=== PATIENT | male | born 1950 | race Caucasian/White ===

== ENCOUNTER → 2017-02-08 | Outpatient (CLI) | payer MEDICARE ==
[~2017-02-08] MED LIST: ALBUAER3 IN; ATOR20TA PO; LEVO500T21 PO; LISI-646 PO; SACC250C PO
[2017-02-08 11:56] LABS: Albumin 3.8 g/dL (3.4-5.0); BUN/Creatinine Ratio 16.8; Bilirubin, Total 0.8 mg/dL (0.2-1.0); Calcium 9.5 mg/dL (8.5-10.1); Potassium 4.6 mmol/L (3.5-5.1); Total Protein 7.7 g/dL (6.4-8.2)
== END | disposition home or self-care (01) ==
LOC: LAB 10:26
DX: Z00.00 Encounter for general adult medical examination without abnormal findings (principal)
CPT/HCPCS: 36415; 80053; 83036

== ENCOUNTER 2025-01-26 12:04 | Inpatient (IN) | payer MEDICARE ==
[~2025-01-26] VITALS: Ht 180.3 cm; Wt 127.4 kg
[~2025-01-26 12:04] MED LIST changes: -LEVO500T21 PO; +LEVO500T31 PO; -LISI-646 PO; +LISI20TA56 PO
--- NOTE | 2025-01-26 12:44 | ECG ---
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
--- NOTE | 2025-01-26 13:15 | ED.PDOC ---
HPI Comments 74 year old male with a Hx of HTN, and CA presents to the ED for the c/c of Left Sided Chest pain and a Shingles Rash that has spread up his left arm. Pt states that he was at Urgent Care and was given a Rocephin Shot and a Script for Cephalexin in order to treat his rash. Pt states that the main reason he did come to the ED was for his CP. No other associated symptoms, modifiers, recent injuries or sick contacts present at this time. Chief Complaint: Chest Pain Time Seen by MD: 13:10 Primary Care Provider: NONE Reviewed Notes: Nurses Notes, Medications, Allergies Allergies: Coded Allergies: Penicillins (Verified Allergy, Unknown, 01/29/17) Pentobarbital (Verified Allergy, Unknown, 01/29/17) Home Meds Active Scripts Lisinopril (Lisinopril) 20 Mg Tab, 1 TAB PO DAILY, #30 TAB Prov:ANIYA KENT MD 02/01/17 Atorvastatin Calcium (Lipitor) 20 Mg Tab, 1 TAB PO DAILY, #30 TAB Prov:ANIYA KENT MD 02/01/17 Yeast (S. Boulardii)(S. Cerevi (Florastor) 250 Mg Cap, 250 MG PO DAILY, #14 CAP Prov:ANIYA KENT MD 02/01/17 Levofloxacin (Levaquin) 500 Mg Tab, 500 MG PO DAILY, #14 TAB Prov:ANIYA KENT MD 02/01/17 Reported Medications Albuterol Sulfate (VENTOLIN MDI) 90 Mcg Ih, 90 MCG IN 01/29/17 Information Source: Patient Mode of Arrival: Ambulatory Severity: Moderate Timing: Days Duration: Since onset, Days Prehospital treatment: None Location: Chest (L) Radiation: No Radiation Quality: Pressure Onset: At Rest Cardiac Risk Factors: HTN PE Risk Factors: None History of: CA Associated Signs and Symptoms: None Past Medical History PAST MEDICAL HISTORY: Asthma, HTN, CA, Denies Surgical History: Denies all surgeries Family History Family History: Unknown Social History Smoker: Non-Smoker Alcohol: Denies ETOH Use Drugs: Denies Drug Use Lives In: Home Constitutional: denies: chills, diaphoresis, fatigue, fever, malaise, sweats, weakness, others EENTM: denies: blurred vision, double vision, ear bleeding, ear discharge, ear drainage, ear pain, ear ringing, eye pain, eye redness, hearing loss, mouth pain, mouth swelling, nasal discharge, nose bleeding, nose congestion, nose pain, photophobia, tearing, throat pain, throat swelling, voice changes, others Respiratory: denies: cough, hemoptysis, orthopnea, SOB at rest, shortness of breath, SOB with excertion, stridor, wheezing, others Cardiovascular: reports: chest pain; denies: dizzy spells, diaphoresis, Dyspnea on exertion, edema, irregular heart beat, left arm pain, lightheadedness, palpitations, PND, syncope, others Gastrointestinal: denies: abdomen distended, abdominal pain, blood streaked bowels, constipated, diarrhea, dysphagia, difficulty swallowing, hematemesis, melena, nausea, poor appetite, poor fluid intake, rectal bleeding, rectal pain, vomiting, others Genitourinary: denies: burning, dysuria, flank pain, frequency, hematuria, incontinence, penile discharge, penile sore, pain, testicle pain, testicle swelling, urgency, others Neurological: denies: dizziness, fainting, headache, left sided numbness, left sided weakness, numbness, paresthesia, pre-existing deficit, right sided numbness, right sided weakness, seizure, speech problems, tingling, tremors, w eakness, others Musculoskeletal: denies: back pain, gout, joint pain, joint swelling, muscle pain, muscle stiffness, neck pain, others Integumetry: reports: rash; denies: bruises, change in color, change in hair/nails, dryness, laceration, lesions, lumps, wounds, others Allergic/Immunocompromised: denies: Difficulty Healing, Frequent Infections, Hives, Itching, others Hematologic/Lymphatic: denies: anemia, blood clots, easy bleeding, easy bruising, swollen glands, others Endocrine: denies: excessive hunger, excessive sweating, excessive thirst, excessive urination, flushing, intolerance to cold, intolerance to heat, unexplained weight gain, unexplained weight loss, others Psychiatric: denies: anxiety, bipolar disorder, depression, hopeless, panic disorder, schizophrenia, sleepless, suicidal, others All Other Systems: Reviewed and Negative Physical Exam General Appearance: Moderate Distress, Normal HEENT: Normal ENT Inspection, Pharynx Normal, TMs Normal Neck: Full Range of Motion, Non-Tender, Normal, Normal Inspection Respiratory: Chest Non-Tender, Lungs Clear, No Accessory Muscle Use, No Respiratory Distress, Normal Breath Sounds Cardiovascular: No Edema, No JVD, No Murmur, No Gallop, Normal Peripheral Pulses, Regular Rate/Rhythm Breast Exam: Deferred Gastrointestinal: No Organomegaly, Non Tender, No Pulsatile Mass, Normal Bowel Sounds, Soft Genitalia: Deferred Pelvic: Deferred Rectal: Deferred Extremities: No calf tenderness, Normal capillary refill, Normal inspection, Normal range of motion, Non-tender, No pedal edema Musculoskeletal : Apperance: Normal Neurologic: Alert, manager policy II-XII nml as Tested, No Motor Deficits, Normal Affect, Normal Mood, No Sensory Deficits Cerebellar Function: Normal Reflexes: Normal Skin: Dry, Normal Color, Warm, Wounds (Left forearm) Peripheral Pulses: 3+ Radial (R), 3+ Radial (L) Lymphatic: No Adenopathy Was a procedure done? Was a procedure done?: No CP Differential Dx Differential Diagnosis: A-fib, A-Flutter, Angina, Anxiety / Panic Attack, Atrial Dysrhythmia, Electrolyte Disorder, Heart Failure, Pulmonary Embolus, Sinus Tachycardia Differential Diagnosis: CHF, HTN Essential, HTN Encephalopathy Differential Diagnosis: Angina, Aortic dissection, Chest Wall Pain, Cholelithia sis, Costochondritis, Esophageal reflux/spasm, Gastritis, Pericarditis, Pneumothorax, Pulmonary Embolus X-Ray, Labs, Meds, VS Vital Signs Date Time Temp Pulse Resp B/P (MAP) Pulse Ox O2 Delivery O2 Flow Rate FiO2 01/26/25 15:07 97.7 77 18 147/82 (103) 96 97.7 01/26/25 13:37 80 01/26/25 12:42 80 01/26/25 12:25 97.5 87 20 143/73 (96) 96 97.5 Lab Test 01/26/25 14:14 01/26/25 13:14 Range/Units Urine Color Light-yellow Yellow Urine Clarity Clear Clear Urine pH 6.0 5.0-9.0 Urine Specific [place] 1.020 1.001-1.035 Urine Protein Negative Negative Urine Ketones Negative Negative Urine Blood Negative Negative /uL Urine Nitrite Negative Negative Urine Bilirubin Negative Negative Urine Urobilinogen Normal Negative mg/dL Urine Leukocyte Esterase Negative Negative /uL Urine RBC None seen 0 - 3 /hpf Urine Microscopic WBC < 1 0-3 /HPF Urine Squamous Epithelial Cells Few <5 /hpf Urine Bacteria None seen None Seen /hpf Urine Mucus Few None Seen Urine Glucose Normal Normal mg/dL White Blood Count 4.8 4.4-10.8 10^3/uL Red Blood Count 4.85 4.5-5.90 10^6/uL Hemoglobin 15.6 13.5-17.5 g/dL Hematocrit 46.4 41.0-53.0 % Mean Corpuscular Volume 95.6 80.0-100.0 fL Mean Corpuscular Hemoglobin 32.1 H 28.0-32.0 pg Mean Corpuscular Hemoglobin Concent 33.5 32.0-36.0 g/dL Red Cell Distribution Width 14.0 11.8-14.3 % Platelet Count 218 140-450 10^3/uL Mean Platelet Volume 8.5 6.9-10.8 fL Neutrophils (%) (Auto) 50.7 37.0-80.0 % Lymphocytes (%) (Auto) 33.7 10.0-50.0 % Monocytes (%) (Auto) 12.3 H 0.0-12.0 % Eosinophils (%) (Auto) 2.4 0.0-7.0 % Basophils (%) (Auto) 0.9 0.0-2.0 % Neutrophils # (Auto) 2.4 1.6-8.6 10 ^3/uL Lymphocytes # (Auto) 1.6 0.4-5.4 10 ^3/uL Monocytes # (Auto) 0.6 0-1.3 10 ^3/uL Eosinophils # (Auto) 0.1 0-0.8 10 ^3/uL Basophils # (Auto) 0 0-0.2 10 ^3/uL Nucleated Red Blood Cells 0.1 % Sodium Level 136 136-145 mmol/L Potassium Level 4.6 3.5-5.1 mmol/L Chloride Level 104 98-107 mmol/L Carbon Dioxide Level 25 20-31 mmol/L Anion Gap 7 5-15 Blood Urea Nitrogen 23 9-23 mg/dL Creatinine 1.17 0.700-1.30 mg/dL Glomerular Filtration Rate Calc 65 >90 mL/min BUN/Creatinine Ratio 19.7 10.0-20.0 Serum Glucose 96 74-106 mg/dL Calcium Level 9.6 8.7-10.4 mg/dL Troponin I High Sensitivity 9 </=54 ng/L Patient alert. Has wound in the left forearm. Cellulitis. Vitals stable. Complaining of chest discomfort. Cardiac marker within normal limits. EKG reviewed does not show any acute changes. WBC within normal limits. Hemoglobin within normal limits. Was given Rocephin. Was given clindamycin. Explained to the patient. Continue monitoring. Time of 1ST Reevaluation: 13:41 Reevaluation 1ST: Unchanged Patient Education/Counseling: Diagnosis, Treatment, Need For Follow Up Family Education/Counseling: No Family Present SEPSIS Sepsis Screen Physician Orders Electrocardigram (01/26/25 13:33) Electrocardigram (01/26/25 15:33) Vital Signs Date Time Temp Pulse Resp B/P (MAP) Pulse Ox O2 Delivery O2 Flow Rate FiO2 01/26/25 15:07 97.7 77 18 147/82 (103) 96 97.7 01/26/25 13:37 80 01/26/25 12:42 80 01/26/25 12:25 97.5 87 20 143/73 (96) 96 97.5 Laboratory Tests Test 01/26/25 13:14 White Blood Count 4.8 10^3/uL (4.4-10.8) Departure 1 Departure Time of Disposition: 15:57 Impression: Primary Impression: Chest pain of unknown etiology Additional Impression: Cellulitis of forearm, left Disposition: 09 ADMITTED INPATIENT Admit to: Med Surg Condition: Guarded Critical Care Note Critical Care Time?: No Stability Stability form required: No Heart Score Heart Score: Heart Score Response (Comments) Value History Slightly Suspicious 0 EKG Normal 0 Age >65 2 Risk Factors 1 or 2 risk factors 1 Troponin Normal limit 0 Total 3 I personally scribed for JOSIE CARRASQUILLO MD ([email or web address]) on 01/26/25 at 13:15. Electronically submitted by Tommy Dong ([email or web address]). JOSIE CARRASQUILLO MD Jan 26, 2025 13:15
[2025-01-26 13:52] LABS: Hematocrit 46.4 % (41.0-53.0); Hemoglobin 15.6 g/dL (13.5-17.5); Mean Corpuscular Hemoglobin 32.1 pg (28.0-32.0); Mean Corpuscular Volume 95.6 fL (80.0-100.0); Nucleated Red Blood Cells % 0.1 %
[2025-01-26 13:53] LABS: Chloride 104 mmol/L (98-107); Potassium 4.6 mmol/L (3.5-5.1); Sodium 136 mmol/L (136-145)
[2025-01-26 13:54] LABS: Anion Gap 7 (5-15); Carbon Dioxide 25 mmol/L (20-31)
[2025-01-26 13:55] LABS: Calcium 9.6 mg/dL (8.7-10.4)
[2025-01-26 13:59] LABS: Glucose 96 mg/dL (74-106)
[2025-01-26 14:00] LABS: BUN/Creatinine Ratio 19.7 (10.0-20.0); Blood Urea Nitrogen 23 mg/dL (9-23)
[2025-01-26 14:47] LABS: Urine Protein, UAD Negative (Negative)
[2025-01-26 16:35] VITALS: PULSE 70; RESP 16; O2SAT 97
[2025-01-26] MEDS: CLINDAMYCIN 300MG IV 50 ML IV ONE (16:38)
[2025-01-26] MEDS ORDERED: NITROGLYCERIN 0.4 MG SL TAB SL PRN (22:30)
[2025-01-26] MEDS ORDERED: MORPHINE SULFATE INJ 2 MG/ml SYRG IV PRN (22:30)
[2025-01-26] MEDS: IBUPROFEN 400 MG TAB PO ONE (22:46)
--- NOTE | 2025-01-26 22:46 | DVHHP2 ---
History of Present Illness History of Present Illness This is a 74-year-old male with past medical history of Asthma on albuterol inhaler as needed, Hypertension, prediabetic came to ER with the complain of rash outer surface of left forearm and crusted lesion medial surface. Patient visited urgent care 9 days ago due to vesicular lesion left forearm and prescribed valacyclovir, cephalexin, mupirocin ointment. Patient also experienced chest pain for 9 days, 2-3/10 intensity, localized, no radiation, worsened at nighttime, no relieving factor. Patient reported new onset of rash left forearm which is worsen for few days raised local temperature, mild swollen but no discharge. No recent history of trauma, insect bite or sick contact. Patient currently denies any shortness of breath, cough, headache, blurry vision, abdominal pain for any acute distress. Patient use walker for ambulation. Past medical history: Asthma, hypertension, prediabetes Physical history: Nothing contributory Personal and social history: Lives with , denies any smoking, ETOH, any substance use Allergy: PCN, phenobarbital. Medicine: Lisinopril 20 mg, Atorvastatin 20 mg, albuterol inhalers. Review of Systems Constitutional: Yes: Other (Obese, use walker for ambulation) Eyes: No: Pain, Vision change, Conjunctivae inflammation, Eyelid inflammation, Other, Redness ENT: No: Ear pain, Ear discharge, Nose pain, Nose discharge, Nose congestion, Mouth pain, Mouth swelling, Throat pain, Throat swelling, Other Respiratory: No: Cough, Dry, Shortness of breath, SOB with excertion, Wheezing, Hemoptysis, Pleuritic Pain, Sputum, Wheezing, Other Cardiovascular: Chest Pain, Edema; No: Palpitations, Orthopnea, Paroxysmal Noc. Dyspnea, Lt Headedness, Other Genitourinary: No Dysuria, No Frequency, No Incontinence, No Hematuria, No R etention, No Other Musculoskeletal: No: other, neck pain, shoulder pain, arm pain, back pain, hand pain, leg pain, foot pain Skin: Rash, Lesions (Crusted lesion flexor surface of left forearm) Neurological: No: Weakness, Numbness, Incoordination, Change in speech, Confusion, Seizures, Other Allergies: Coded Allergies: Penicillins (Verified Allergy, Unknown, 01/29/17) Pentobarbital (Verified Allergy, Unknown, 01/29/17) Medications Current Medications Medications Dose Ordered Sig/Jhon Route Start Time Stop Time Status Last Admin Dose Admin Nitroglycerin 0.4 mg Q5MINP PRN SL 01/26/25 22:30 Morphine Sulfate 2 mg Q30M PRN IV 01/26/25 22:30 Clindamycin Phosphate 50 ml @ 50 mls/hr Q8HR@0000,0800,1600 IV 01/27/25 00:00 Pantoprazole Sodium 40 mg DAILY@0600 PO 01/27/25 06:00 Enoxaparin Sodium 30 mg HS SC 01/27/25 22:00 Lisinopril 20 mg DAILY PO 01/27/25 10:00 Saccharomyces Boulardii 250 mg DAILY PO 01/27/25 10:00 Exam Vital Signs Vital Signs Date Time Temp Pulse Resp B/P (MAP) Pulse Ox O2 Delivery O2 Flow Rate FiO2 01/26/25 21:23 98.5 62 17 157/85 (109) 95 98.5 01/26/25 16:35 Room Air* 0 21 General Appearance: Alert, Oriented X3, No acute distress, Other (rash extensor surface of left forearm and crusted lesion flexor surface) HEENT: PERRLA, EOMI, Other (use glasses for vision) Respiratory: Clear to auscultation Cardiovascular: Regular rate, Normal S1, Normal S2 Abdominal: Normal bowel sounds, Soft, Other (Umbilical hernia) Extremities: No clubbing, No cyanosis, Other (Bilateral 1+ edema) Labs/Xrays Labs Test 01/26/25 14:14 01/26/25 13:14 Range/Units Urine Color Light-yellow Yellow Urine Clarity Clear Clear Urine pH 6.0 5.0-9.0 Urine Specific [place] 1.020 1.001-1.035 Urine Protein Negative Negative Urine Ketones Negative Negative Urine Blood Negative Negative /uL Urine Nitrite Negative Negative Urine Bilirubin Negative Negative Urine Urobilinogen Normal Negative mg/dL Urine Leukocyte Esterase Negative Negative /uL Urine RBC None seen 0 - 3 /hpf Urine Microscopic WBC < 1 0-3 /HPF Urine Squamous Epithelial Cells Few <5 /hpf Urine Bacteria None seen None Seen /hpf Urine Mucus Few None Seen Urine Glucose Normal Normal mg/dL White Blood Count 4.8 4.4-10.8 10^3/uL Red Blood Count 4.85 4.5-5.90 10^6/uL Hemoglobin 15.6 13.5-17.5 g/dL Hematocrit 46.4 41.0-53.0 % Mean Corpuscular Volume 95.6 80.0-100.0 fL Mean Corpuscular Hemoglobin 32.1 H 28.0-32.0 pg Mean Corpuscular Hemoglobin Concent 33.5 32.0-36.0 g/dL Red Cell Distribution Width 14.0 11.8-14.3 % Platelet Count 218 140-450 10^3/uL Mean Platelet Volume 8.5 6.9-10.8 fL Neutrophils (%) (Auto) 50.7 37.0-80.0 % Lymphocytes (%) (Auto) 33.7 10.0-50.0 % Monocytes (%) (Auto) 12.3 H 0.0-12.0 % Eosinophils (%) (Auto) 2.4 0.0-7.0 % Basophils (%) (Auto) 0.9 0.0-2.0 % Neutrophils # (Auto) 2.4 1.6-8.6 10 ^3/uL Lymphocytes # (Auto) 1.6 0.4-5.4 10 ^3/uL Monocytes # (Auto) 0.6 0-1.3 10 ^3/uL Eosinophils # (Auto) 0.1 0-0.8 10 ^3/uL Basophils # (Auto) 0 0-0.2 10 ^3/uL Nucleated Red Blood Cells 0.1 % Sodium Level 136 136-145 mmol/L Potassium Level 4.6 3.5-5.1 mmol/L Chloride Level 104 98-107 mmol/L Carbon Dioxide Level 25 20-31 mmol/L Anion Gap 7 5-15 Blood Urea Nitrogen 23 9-23 mg/dL Creatinine 1.17 0.700-1.30 mg/dL Glomerular Filtration Rate Calc 65 >90 mL/min BUN/Creatinine Ratio 19.7 10.0-20.0 Serum Glucose 96 74-106 mg/dL Calcium Level 9.6 8.7-10.4 mg/dL Troponin I High Sensitivity 9 </=54 ng/L Assessment/Plan Assessment/Plan # Left forearm erythematous rash likely sub acute herpes rash/ left forearm cellulitis -patient having rash last few days which became worsen. - left extensor surface forearm raised localized temperature, redness, mild local edema. -Pt received IV clindamycin, levofloxacin , NS in ED. -Continue clindamycin IV Q8h daily -Daily monitor for spread of infection -Monitor CBC # Atypical Chest pain likely due to musculoskeletal, GERD - Received [id number] mg P.O. in ED -Troponin level 9 -Ibuprofen 600 mg p.o. given. -Continue pantoprazole 40 mg daily # Crusted lesion left forearm due to healing herpes zoster -H/O zoster Lesion left forearm and treated with p.o. valacyclovir # Essential hypertension -LISINOPRIL 20 MG DAILY -MONITOR BP # Prediabetic -will check HGB A1c # Morbid Obesity -BMI 39.6 -LIFESTYLE MODIFICATION #Diet: Regular # GI prophylaxis: Pantoprazole 40 mg # DVT prophylaxis : Enoxaparin 30 mg sc daily Goals of care discussion, greater than 29 minutes. Full code status. Discussed with Dr. Bobo. Plan discussed with: Patient, Other (Nurse) My Orders Orders - GARRET DOYLE Procedure Category Date Status Time Admit ADMIT 01/26/25 Transmitted 22:24 Nitroglycerin PHA 01/26/25 In Process Sublingual (Ntrostat 22:30 Morphine Sulfate PHA 01/26/25 In Process Injection 22:30 Date of Service: Jan 26, 2025 Billing Provider: EVITA BOBO MD Common Visit Codes: 29324-OXLEOBH INP/OBS CARE (HIGH) Secondary Visit Codes: 63067-[id number] CARE PLAN 30 MINUTES GARRET DOYLE Jan 26, 2025 22:46
[2025-01-26] MEDS: LISINOPRIL 20 MG TAB PO ONE (22:47)
[2025-01-26] MEDS: ENOXAPARIN SOD 30 MG/0.3 ML SYRINGE SC ONE (22:47)
[2025-01-27] MEDS: CLINDAMYCIN 600MG IV 50 ML IV SCH
[2025-01-27 01:10] VITALS: BP 148/79; PULSE 91; RESP 17; TEMP 79.9; TEMP 97.9; O2SAT 95
--- NOTE | 2025-01-27 02:14 | DVH ---
EXAM: XY CHEST XRAY 1 VIEW CLINICAL HISTORY: Chest pain TECHNIQUE: Single AP view of the chest WID: COMPARISON: None FINDINGS: Lines and tubes: None Chest: Mild cardiomegaly. No pulmonary vascular congestion. Linear bibasilar and perihilar opacities. The osseous structures are grossly intact. Multilevel thoracic spondylosis. IMPRESSION: Mild cardiomegaly.
[2025-01-27 04:54] VITALS: BP 134/83; PULSE 65; RESP 16; TEMP 97.8; O2SAT 96
[2025-01-27] MEDS: PANTOPRAZOLE 40 MG TAB PO SCH (06:00)
--- NOTE | 2025-01-27 06:41 | ECG ---
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
[2025-01-27 09:00] VITALS: BP 139/88; PULSE 74; RESP 20; TEMP 97.7; O2SAT 96
[2025-01-27] MEDS: FLORASTOR (S. BOULARDII) 250 MG CAP PO SCH (10:44)
[2025-01-27] MEDS: LISINOPRIL 20 MG TAB PO SCH (10:44)
[2025-01-27 13:00] VITALS: BP 114/62; PULSE 83; RESP 20; TEMP 97.3; O2SAT 97
--- NOTE | 2025-01-27 13:52 | DVHPNRES ---
Progress Note Date Seen: Jan 27, 2025 Resident Creating Document: CRYS GALLOWAY RESIDENT Medical Necessity Reason Pt with a Central, PICC or Fol: No Subjective Review of Systems This is a 74-year-old male with past medical history of Asthma on albuterol inhaler as needed, Hypertension, prediabetic came to ER with the complain of rash outer surface of left forearm and crusted lesion medial surface. Patient visited urgent care 9 days ago due to vesicular lesion left forearm and prescribed valacyclovir, cephalexin, mupirocin ointment. Patient also experienced pain in the lt axilla for 5 days, 2-3/10 intensity, localized, no radiation, worsened at nighttime, no relieving factor. Patient reported new onset of rash left forearm which is worsen for few days raised local temperature, mild swollen but no discharge. No recent history of trauma, insect bite or sick contact. Patient currently denies any shortness of breath, cough, headache, blurry vision, abdominal pain for any acute distress. Patient use walker for ambulation. Patient was seen and examined on the bedside. He is alert oriented x3. Complain of pain and redness in the left extensor surface of the forearm and also crusted black painful scar on the flexor surface from the zoster. Constitutional: No: Fever, Chills, Sweats, Weakness, Malaise, Other Eyes: No: Pain, Vision change, Conjunctivae inflammation, Eyelid inflammation, Other, Redness ENT: No: Ear pain, Ear discharge, Nose pain, Nose discharge, Nose congestion, Mouth pain, Mouth swelling, Throat pain, Throat swelling, Other Respiratory: Shortness of breath, improving No: Cough, Dry,Wheezing, Hemoptysis, Pleuritic Pain, Sputum, Wheezing, Other Cardiovascular: No: Chest Pain, Palpitations, Orthopnea, Paroxysmal Noc. Dyspnea, Edema, Lt Headedness, Other Gastrointestinal: No: Nausea, Vomiting, Abdominal Pain, Diarrhea, Constipation, Melena, Hematochezia, Other Musculoskeletal: Lt forearm pain, No: other, neck pain, shoulder pain, arm pain, back pain, leg pain, foot pain Neurological:; No: Weakness, Numbness, Incoordination, Change in speech, Confusion, Seizures Objective vital signs Vital Sign Date Time Temp Pulse Resp B/P (MAP) Pulse Ox O2 Delivery O2 Flow Rate FiO2 01/27/25 10:44 139/88 01/27/25 09:00 97.7 74 20 96 97.7 01/27/25 01:10 Room Air* 0 21 Total Intake and Output 01/26/25 01/26/25 01/27/25 15:00 23:00 07:00 Intake Total 150 ml 50 ml Balance 150 ml 50 ml medications Current Medications Medications Dose Ordered Sig/Jhon Route Start Time Stop Time Status Last Admin Dose Admin Clindamycin Phosphate 50 ml @ 50 mls/hr Q8HR@0000,0800,1600 IV 01/27/25 00:00 01/27/25 08:20 50 MLS/HR Pantoprazole Sodium 40 mg DAILY@0600 PO 01/27/25 06:00 01/27/25 06:00 40 MG Enoxaparin Sodium 30 mg HS SC 01/27/25 22:00 Lisinopril 20 mg DAILY PO 01/27/25 10:00 01/27/25 10:44 20 MG Saccharomyces Boulardii 250 mg DAILY PO 01/27/25 10:00 01/27/25 10:44 250 MG Examination Physical examination: General Appearance: Alert, Oriented X3, Cooperative, No acute distress HEENT: Atraumatic, PERRLA, EOMI, Mucous membrane moist/pink Respiratory: Clear to auscultation, Normal air movement Cardiovascular: Regular rate, Normal S1, Normal S2, No murmurs, no chest wall tenderness Abdominal: Normal bowel sounds, Soft, No tenderness, No hepatospenomegaly, No masses Extremities: No clubbing, No cyanosis, No edema, Normal pulses, No tenderness/swelling Skin: Redness and crusted scar in the left forearm Neuro: Normal gait, Normal speech, Strength at 5/5 X4 ext, Normal tone, Sensation intact, Cranial nerves 3-12 NL, Reflexes 2+ Psych/Mental Status: Mental status NL, Mood NL laboratory and microbiology Laboratory Tests 01/26/25 13:14 Test 01/26/25 13:14 Range/Units Serum Glucose 96 74-106 mg/dL Labs and/or images reviewed: Labs reviewed by me, Image(s) reviewed by me Problem List/Assessment/Plan Problem List/Assessment/Plan Assessment/Plan # Left forearm erysipelas/ cellulitis -Continue clindamycin IV Q8h daily # Chest pain likely due to musculoskeletal /gastritis - EKG showed sinus rhythm, old Q-wave, troponins are remarkable -Ibuprofen 600 mg p.o. given. -Continue pantoprazole 40 mg daily # Crusted lesion left forearm due to healing herpes zoster -H/O zoster Lesion left forearm and treated with p.o. valacyclovir # Essential hypertension - Lisinopril 20 mg daily # Prediabetic -will check HbA1c # Morbid Obesity, BMI 39.6 - counseled patient regarding DASH diet, lifestyle modification, weight loss and physical exercise at least 150 minutes 5 times a week #Diet: Regular # GI prophylaxis: Pantoprazole 40 mg # DVT prophylaxis : Enoxaparin 40 mg sc daily Goals of care discussion, greater than 21 minutes. Full code status. Plan discussed with Dr. Handley Plan discussed with: Patient, Other Date of Service: Jan 27, 2025 Billing Provider: LINK HANDLEY MD Common Visit Codes: [id number] INP/OBS CARE(HIGH) CRYS GALLOWAY RESIDENT Jan 27, 2025 13:52 LINK HANDLEY MD Jan 28, 2025 21:12
[2025-01-27 16:58] VITALS: BP 119/70; PULSE 76; RESP 20; TEMP 98.1; O2SAT 95
[2025-01-27 21:00] VITALS: BP 112/64; PULSE 73; RESP 19; TEMP 96.9; O2SAT 97
[2025-01-27] MEDS: ENOXAPARIN SOD 40 MG/0.4 ML SYRINGE SC SCH (21:52)
[2025-01-27] MEDS ORDERED: ENOXAPARIN SOD 30 MG/0.3 ML SYRINGE SC SCH (22:00)
[2025-01-28 01:00] VITALS: BP 119/74; PULSE 67; RESP 18; TEMP 97.5; O2SAT 96
[2025-01-28 05:00] VITALS: BP 134/79; PULSE 74; RESP 19; TEMP 97.1; O2SAT 94
[2025-01-28 09:00] VITALS: BP 124/74; PULSE 76; RESP 20; TEMP 97.8; O2SAT 96
[2025-01-28] MEDS ORDERED: PANT40TA2 PO ×2 (11:46→13:31)
[2025-01-28] MEDS ORDERED: AUG875T PO (11:46)
--- NOTE | 2025-01-28 11:50 | DVHDSRES ---
Discharge Summary Date of Admission Resident Creating Document: PERLITA LUGO RESIDENT Jan 26, 2025 at 22:24 Date of Discharge: Jan 28, 2025 Admitting Diagnosis Musculoskeletal chest pain Labs/Diagnostic Data: Laboratory Results Test 01/27/25 17:44 01/26/25 14:14 01/26/25 13:14 Hemoglobin A1c 5.7 % A1C (<5.7) Urine Color Light-yellow (Yellow) Urine Clarity Clear (Clear) Urine pH 6.0 (5.0-9.0) Urine Specific [place] 1.020 (1.001-1.035) Urine Protein Negative (Negative) Urine Ketones Negative (Negative) Urine Blood Negative /uL (Negative) Urine Nitrite Negative (Negative) Urine Bilirubin Negative (Negative) Urine Urobilinogen Normal mg/dL (Negative) Urine Leukocyte Esterase Negative /uL (Negative) Urine RBC None seen /hpf (0 - 3) Urine Microscopic WBC < 1 /HPF (0-3) Urine Squamous Epithelial Cells Few /hpf (<5) Urine Bacteria None seen /hpf (None Seen) Urine Mucus Few (None Seen) Urine Glucose Normal mg/dL (Normal) White Blood Count 4.8 10^3/uL (4.4-10.8) Red Blood Count 4.85 10^6/uL (4.5-5.90) Hemoglobin 15.6 g/dL (13.5-17.5) Hematocrit 46.4 % (41.0-53.0) Mean Corpuscular Volume 95.6 fL (80.0-100.0) Mean Corpuscular Hemoglobin 32.1 pg (28.0-32.0) Mean Corpuscular Hemoglobin Concent 33.5 g/dL (32.0-36.0) Red Cell Distribution Width 14.0 % (11.8-14.3) Platelet Count 218 10^3/uL (140-450) Mean Platelet Volume 8.5 fL (6.9-10.8) Neutrophils (%) (Auto) 50.7 % (37.0-80.0) Lymphocytes (%) (Auto) 33.7 % (10.0-50.0) Monocytes (%) (Auto) 12.3 % (0.0-12.0) Eosinophils (%) (Auto) 2.4 % (0.0-7.0) Basophils (%) (Auto) 0.9 % (0.0-2.0) Neutrophils # (Auto) 2.4 10 ^3/uL (1.6-8.6) Lymphocytes # (Auto) 1.6 10 ^3/uL (0.4-5.4) Monocytes # (Auto) 0.6 10 ^3/uL (0-1.3) Eosinophils # (Auto) 0.1 10 ^3/uL (0-0.8) Basophils # (Auto) 0 10 ^3/uL (0-0.2) Nucleated Red Blood Cells 0.1 % Sodium Level 136 mmol/L (136-145) Potassium Level 4.6 mmol/L (3.5-5.1) Chloride Level 104 mmol/L (98-107) Carbon Dioxide Level 25 mmol/L (20-31) Anion Gap 7 (5-15) Blood Urea Nitrogen 23 mg/dL (9-23) Creatinine 1.17 mg/dL (0.700-1.30) Glomerular Filtration Rate Calc 65 mL/min (>90) BUN/Creatinine Ratio 19.7 (10.0-20.0) Serum Glucose 96 mg/dL (74-106) Calcium Level 9.6 mg/dL (8.7-10.4) Troponin I High Sensitivity 9 ng/L (</=54) Other Laboratory Tests 01/26/25 13:14 Brief Hx & Hospital Course: 74-year-old male with past medical history of Asthma on albuterol inhaler as needed, Hypertension, prediabetic came to ER with the complain of rash outer surface of left forearm and crusted lesion medial surface. Patient visited urgent care 9 days ago due to vesicular lesion left forearm and prescribed valacyclovir, cephalexin, mupirocin ointment. Patient also experienced pain in the lt axilla for 5 days, 2-3/10 intensity, localized, no radiation, worsened at nighttime, no relieving factor. Patient reported new onset of rash left forearm which is worsen for few days raised local temperature, mild swollen but no discharge. No recent history of trauma, insect bite or sick contact. Patient currently denies any shortness of breath, cough, headache, blurry vision, abdominal pain for any acute distress. Patient use walker for ambulation. Patient had left forearm Rocephin was versus cellulitis we started IV clindamycin, two the patient is feeling better, erythema reduced, no complaint of pain or fever or chills, patient also diagnosed with herpes zoster on arm treated with p.o. acyclovir, some healing herpes zoster rash observed, no active herpes zoster noted. Two the patient is hemodynamically stable and going to be discharged home with p.o. clindamycin for seven more days. Advised patient to follow up with PCP in 1-2 weeks. Condition at Discharge: Stable Final Diagnosis/Problems List # Left forearm erysipelas/ cellulitis, # Chest pain likely due to musculoskeletal /gastritis , # Crusted lesion left forearm due to healing herpes zoster , # Essential hypertension, # Prediabetic, # Morbid Obesity, BMI 39.6, Discharge Disposition: Home SNF Discharge Will this Physician continue t: No Discharge Instruct/Medications Diet: Cardiac 2g Na,low cholest Activity: No Restrictions, As Tolerated Follow Up/Referral: Follow up with PCP in 1-2 weeks Medications: Augmentin 875 mg b.i.d. for seven days Protonix 40 mg daily for 30 days Resume home medications Scheduled Atorvastatin Calcium (Lipitor), 1 TAB PO DAILY Clindamycin Hcl (Clindamycin Hcl), 300 MG PO TID Lisinopril (Lisinopril), 1 TAB PO DAILY Lisinopril (Lisinopril), 1 TAB PO DAILY Pantoprazole Sodium Sesquihydr (Protonix), 40 MG PO DAILY Yeast (S. Boulardii)(S. Cerevi (Florastor), 250 MG PO DAILY Miscellaneous Medications Albuterol Sulfate (Ventolin Mdi), 90 MCG IN, (Reported) Discontinued Medications Levofloxacin (Levaquin), 500 MG PO DAILY Discharge Statement: "Patient was advised to return to the ER or call 911 if any headaches, dizziness, shortness of breath, chest pain, abdominal pain, bleeding, fevers, or worsening of medical condition. Patient was counseled about treatment plan, medications, possible side effects, patientverbalized understanding. All questions were answered to the best of my ability. This discharge took greater then 30 minutes in planning, reviewing documentation, counseling the patient, and discussing with other team members." ASSESSMENT ASSESSMENT Assessment # Left forearm erysipelas/ cellulitis, # Chest pain likely due to musculoskeletal /gastritis , # Crusted lesion left forearm due to healing herpes zoster , # Essential hypertension, # Prediabetic, # Morbid Obesity, BMI 39.6, Date of Service: Jan 28, 2025 Billing Provider: LINK HANDLEY MD Common Visit Codes: 11200-PAF/OBS DISCH DAY >30min PERLITA LUGO RESIDENT Jan 28, 2025 11:50 LINK HANDLEY MD Jan 28, 2025 21:18
[2025-01-28 12:19] VITALS: BP 124/74; TEMP 36.6
[2025-01-28 12:59] VITALS: BP_SYST 107; BP_SYST 115; BP_DIAS 54; BP_DIAS 62; PULSE 66; PULSE 82; RESP 20; TEMP 96.7; TEMP 97.8; O2SAT 92; O2SAT 97
[2025-01-28 13:00] VITALS: BP 127/71; PULSE 81; RESP 20; TEMP 98; O2SAT 94
[2025-01-28] MEDS ORDERED: LISI20TA56 PO (13:31)
[2025-01-28] MEDS ORDERED: CLIN1CAP70 PO (13:31)
--- NOTE | 2025-01-30 07:21 | ECG ---
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
== END 2025-01-28 15:00 | disposition home or self-care (01) | DRG 603 ==
LOC: ER 12:04 → OVERFLOW 22:24 → WEST WING 22:27
PROVIDERS: ATTEND Emergency Medicine
DX: L03.114 Cellulitis of left upper limb (principal); E66.01 Morbid (severe) obesity due to excess calories; J45.909 Unspecified asthma, uncomplicated; I10 Essential (primary) hypertension; Z68.39 Body mass index [BMI] 39.0-39.9, adult; A46 Erysipelas; K29.70 Gastritis, unspecified, without bleeding; B02.9 Zoster without complications; R73.03 Prediabetes; K21.9 Gastro-esophageal reflux disease without esophagitis; Z88.0 Allergy status to penicillin; Z79.899 Other long term (current) drug therapy; I25.2 Old myocardial infarction
CPT/HCPCS: 36415; 71045; 80048; 81001; 83036; 84484; 85025; 93005; 96365; G0378; J1956; J3490